=== PATIENT | male | born 1940 | race Caucasian/White ===

== ENCOUNTER 2021-06-18 21:33 | Inpatient (IN) | payer OTHER ==
[~2021-06-18] VITALS: Ht 152.4 cm; Wt 47.5 kg
--- NOTE | ~2021-06-18 | EMS ---
[address] [address] EMS Patient Care Report Name: SMITH GONZALEZ Room #: PRE M.R.#: [id number] Admission: Attend Phys: Discharge: Date of : 38 Report #: [id number] THIS REPORT FOR: //name// Report Transmitted: 06/18/2021 21:30 EMS Care Summary [place], [place]/[facility] Incident [id number] @ 06/18/2021 20:49 Incident Location [facility] [address] [place] [address] Patient SMITH GONZALEZ Male, 81 Years 1940 Patient Address [address] [place] [address] Patient History Congestive Heart Failure (CHF),Chronic Obstructive Pulmonary Disease (COPD),Hypertension (HTN),Cardiac - Stent,Coronary Artery Disease (CAD), Chief Complaint Respiratory distress Disposition Transported Lights/[place] Dispatch Reason Breathing Problem Transported To [facility] Narrative M36 dispatched for a 81 year old male conscious and breathing having respiratory distress. M36 responds to the scene emergent using lights and sirens. Arrival at the scene EMS personnel find the patient upstairs sitting down in bed with P42 personnel. Patient does not acknowledge EMS presence is GCS 3. P42 personnel have placed the patient on oxygen via Nebulizer and have initiated a breathing treatment. P42 personnel advise to EMS that the patient SPO2 is 82% on room air and rhonchi taken off the diminished lung sounds are [address] [place] [address] EMS Patient Care Report Name: SMITH GONZALEZ Room #: PRE [facility]..#: [id number] Admission: Attend Phys: Discharge: Date of : 38 Report #: [id number] auscultated. Patient has a patent airway is breathing a slow and irregular. SPO2 is noted to increase to 85%. Skin is pale and hot to the touch. Weak radial pulses are palpated. Patient is located upstairs in a small bedroom. Patient is moved to a stairchair and secured with seatbelts. Patient is moved quickly and safely downstairs to the stretcher and secured in the supine position using seatbelt and rails. Patient is quickly moved to the ambulance and placed on the monitor to obtain VS and ECG. Patient is quickly removed from the nebulizer and ventilations are initiated via BVM. IV access is established in the left antecubital region using a 18G IV and secured with a venigard. 500ML NS is initiated for hypotension and tachycardia. Sinus tachycardia is noted on ECG. Transport is initiated to [facility] emergent with a sepsis alert. Glucose check is 221mg.dL. Assessment is conducted. Patient is GCS 3 and unresponsive. Patient has a patent airway and is being ventilated via BVM at 15LPM. Regular rapid radial pulses are noted. Skin is hot to the touch and dry. HEENT are WNL. Pupils are PERRL. Trachea is midline with no JVD noted. Chest wall is stable and intact with symmetrical rise and fall. Lung sounds are noted to be diminished with rhonchi. Abdomen is soft and nontender with no distention or rigidity noted. Pelvis is stable and intact. Patient is unresponsive and stable. SPO2 is noted to be 96% with ventilations via BVM. Arrival at the receiving facility patient is offloaded and taken to ED room 11. RN is given report and transfer of care is completed. Signatures are obtained and M36 remains out of service for decon. Initial Vitals @21:17P: 142,R: 9,BP: 89/49,Pain: 0/10,GCS: 3,Glucose: -2,CO: 1,SpO2: 89,Revised Trauma: 5, @21:23P: 120,R: 12,BP: 106/72,Pain: 0/10,GCS: 3,EtCO2: 0,SpO2: 90,Revised Trauma: 8,WI Suspected: false Assessments @21:03MENTAL:Unresponsive,SKIN:Hot,HEENT:Head/Face: No Abnormalities,Eyes: No Abnormalities,LUNG SOUNDS:General: No Abnormalities,Left Upper: No Abnormalities,Right Upper: No Abnormalities,Left Lower: No Abnormalities,Right Lower: No Abnormalities,ABDOMEN:General: No Abnormalities,Left Upper: No Abnormalities,Right Upper: No Abnormalities,Left Lower: No Abnormalities,Right Lower: No Abnormalities,PELVIS//GI:No Abnormalities,EXTREMITIES:Left Arm: No Abnormalities,Right Arm: No Abnormalities,Left Leg: No Abnormalities,Right Leg: No Abnormalities,PULSE:Radial: 1+ Thready,NEURO: Impression Sepsis/Septicemia [facility] [address] [place] [address] EMS Patient Care Report Name: CARLOSSMITH Room #: PRE REAGAN Melissa#: [id number] Admission: Attend Phys: Discharge: Date of : 38 Report #: [id number] Procedures @PTAOxygen FlowRate: 15 Device: Nebulizer Response: UnchangedSucceeded @21:03 ALS Assessment Response: UnchangedSucceeded @21:15 Oxygen FlowRate: 15 Device: Bag Valve Mask (BVM) Response: UnchangedSucceeded @21:15 IV Bolus - Normal Saline (.9% NaCl) 500cc (18 ga) Site: Antecubital-Left Response: UnchangedSucceeded @PTAAlbuterol - 2.5 Milligrams (mg) - Nebulized Response: Unchanged @PTAAtrovent - 0.5 Milligrams (mg) - Nebulized Response: Unchanged Timeline ASSEMBLER KNIFE,Oxygen FlowRate: 15 Device: Nebulizer Response: UnchangedSucceeded, ASSEMBLER KNIFE,Albuterol - 2.5 Milligrams (mg) - Nebulized,Response: Unchanged ASSEMBLER KNIFE,Atrovent - 0.5 Milligrams (mg) - Nebulized,Response: Unchanged 20:48,Call Received 20:48,Dispatch Notified 20:49,Dispatched 20:50,En Route 21:00,On Scene 21:03,At Patient 21:03,ALS Assessment,Response: UnchangedSucceeded, 21:15,Oxygen FlowRate: 15 Device: Bag Valve Mask (BVM) Response: UnchangedSucceeded, 21:15,IV Bolus - Normal Saline (.9% NaCl) 500cc 18 ga Site: Antecubital-Left,Response: UnchangedSucceeded, 21:17,BP: 89/49 M,PULSE: 142,RR: 9 R,SPO2: 89 Ox,ETCO2: ,BG: -2,PAIN: 0,GCS: 3, 21:17,Depart Scene 21:23,BP: 106/72 M,PULSE: 120,RR: 12 R,SPO2: 90 Ox,ETCO2: 0 ,BG: ,PAIN: 0,GCS: 3, 21:27,At Destination 22:00,Call Closed Disclaimer v1.1 Copyright 2021 [employer] This EMS Care Summary contains data elements from the applicable legal record (which may be displayed differently). It is designed to provide pertinent information for the following purposes: continuity of care, clinical quality, and state data reporting. The complete legal record is available to ED staff and administrators of the receiving hospital in [facility]'s Patient Tracker. All data is provided "as is."
--- NOTE | ~2021-06-18 | HC ---
[facility] [address] [place] [address] CONSULTATION Name: SMITH GONZALEZ Room #: 245-P ADM IN M.R.#: [id number] Admission: 06/18/21 Attend Phys: Becky Jeong Discharge: Date of : 38 Report #: [id number] THIS REPORT FOR: cc: [facility] - Clinic physician unknown [facility] - Clinic physician unknown Chester Martin MD ~ DATE OF SERVICE: 06/20/2021 HISTORY OF PRESENT ILLNESS: This is an 81-year-old male patient who was evaluated by me altered mental status. There is no family member here. The patient does not provide any history. I talked to the nurse looking after this patient in detail. I reviewed multiple notes including the ambulance run, admission history and physical examination. It looks like the patient was in respiratory distress when the ambulance people reached there. He was brought to Emergency Room. His oxygen saturation was low, but then it came up some. He continued to be unresponsive. He had some sedation, but nothing which will make him that unresponsive. REVIEW OF SYSTEMS: From the record, he has a history of COPD. He had respiratory distress. He is intubated. He has a past history of schizophrenia, blindness, and BPH as I understand from the record. This is all the history I can get. He is being seen by ID because he had sepsis. He also has a urinary tract infection. He is being seen by Nephrology because he has kidney failure, although that is becoming better with today his GFR being 53. When he came in, he had significant hyponatremia. In the hospital, he has also developed atrial fibrillation. He is being seen by Cardiology in that regard. This is all the history I can get. PAST MEDICAL HISTORY: Positive for what looks like COPD. FAMILY HISTORY: Noncontributory. SOCIAL HISTORY: Unavailable. PHYSICAL EXAMINATION: Limited. He had partially open eyes. He will not close to the threat. I cannot tell about the pupil. He does move when I stimulate his heel, but I do not know whether it is upgoing plantars or whether it is withdrawal. I could not elicit any reflexes. That is all the exam, which was possible in this patient. His labs were reviewed. He does not have any edema. He is intubated. He did have atrial fibrillation here. He is thin individual. He does appear to be macerated. DIAGNOSTIC DATA: He did have a CT scan of the head, which I reviewed that does not show any acute changes. [facility] [address] [place] [address] CONSULTATION Name: SMITH GONZALEZ Room #: 245-P ADM IN .R.#: [id number] Admission: 06/18/21 Attend Phys: Becky Jeong Discharge: Date of : 38 Report #: [id number] IMPRESSION: This patient has severe encephalopathy. How much it is hypoxic, which is irreversible and how much it is because of other metabolic problems which may be partly reversible is not clear. Presently, I think it will be desirable to continue supportive care in this patient and see how he does and I will try to talk to the family and try to reach them and see how aggressive they want to be because it does not look like his quality of the life is very good and he may lose ground even from that. More than 40 minutes of time was spent taking care of this patient today and majority was spent coordinating his care and reviewing his extensive records. By: 1849 2331 Chester Martin MD /nt
--- NOTE | ~2021-06-18 | EMS ---
[facility] [address] [place] [address] EMS Patient Care Report Name: SMITH GONZALEZ Room #: 170-10 ADM IN M.R.#: [id number] Admission: 06/18/21 Attend Phys: Becky Jeong Discharge: Date of : 38 Report #: [id number] THIS REPORT FOR: //name// Report Transmitted: 06/18/2021 22:33 EMS Care Summary [place], [place]/[facility] Incident [id number] @ 06/18/2021 20:49 Incident Location [address] [place] [address] Patient SMITH GONZALEZ Male, 81 Years 1940 Patient Address [address] [place] [address] Patient History Congestive Heart Failure (CHF),Chronic Obstructive Pulmonary Disease (COPD),Hypertension (HTN),Cardiac - Stent,Coronary Artery Disease (CAD), Chief Complaint Respiratory distress Disposition Transported Lights/[place] Dispatch Reason Breathing Problem Transported To [facility] Narrative M36 dispatched for a 81 year old male conscious and breathing having respiratory distress. M36 responds to the scene emergent using lights and sirens. Arrival at the scene EMS personnel find the patient upstairs sitting down in bed with P42 personnel. Patient does not acknowledge EMS presence is GCS 3. P42 personnel have placed the patient on oxygen via Nebulizer and have initiated a breathing treatment. P42 personnel advise to EMS that the patient SPO2 is 82% on room air and rhonchi taken off the diminished lung sounds are [facility] [address] [place] [address] EMS Patient Care Report Name: SMITH GONZALEZ Room #: 170-10 ADM IN M.R.#: [id number] Admission: 06/18/21 Attend Phys: Becky Jeong Discharge: Date of : 38 Report #: [id number] auscultated. Patient has a patent airway is breathing a slow and irregular. SPO2 is noted to increase to 85%. Skin is pale and hot to the touch. Weak radial pulses are palpated. Patient is located upstairs in a small bedroom. Patient is moved to a stairchair and secured with seatbelts. Patient is moved quickly and safely downstairs to the stretcher and secured in the supine position using seatbelt and rails. Patient is quickly moved to the ambulance and placed on the monitor to obtain VS and ECG. Patient is quickly removed from the nebulizer and ventilations are initiated via BVM. IV access is established in the left antecubital region using a 18G IV and secured with a venigard. 500ML NS is initiated for hypotension and tachycardia. Sinus tachycardia is noted on ECG. Transport is initiated to [facility] emergent with a sepsis alert. Glucose check is 221mg.dL. Assessment is conducted. Patient is GCS 3 and unresponsive. Patient has a patent airway and is being ventilated via BVM at 15LPM. Regular rapid radial pulses are noted. Skin is hot to the touch and dry. HEENT are WNL. Pupils are PERRL. Trachea is midline with no JVD noted. Chest wall is stable and intact with symmetrical rise and fall. Lung sounds are noted to be diminished with rhonchi. Abdomen is soft and nontender with no distention or rigidity noted. Pelvis is stable and intact. Patient is unresponsive and stable. SPO2 is noted to be 96% with ventilations via BVM. Arrival at the receiving facility patient is offloaded and taken to ED room 11. RN is given report and transfer of care is completed. Signatures are obtained and M36 remains out of service for decon. Initial Vitals @21:17P: 142,R: 9,BP: 89/49,Pain: 0/10,GCS: 3,Glucose: -2,CO: 1,SpO2: 89,Revised Trauma: 5, @21:23P: 120,R: 12,BP: 106/72,Pain: 0/10,GCS: 3,EtCO2: 0,SpO2: 90,Revised Trauma: 8,LA Suspected: false Assessments @21:03MENTAL:Unresponsive,SKIN:Hot,HEENT:Head/Face: No Abnormalities,Eyes: No Abnormalities,LUNG SOUNDS:General: No Abnormalities,Left Upper: No Abnormalities,Right Upper: No Abnormalities,Left Lower: No Abnormalities,Right Lower: No Abnormalities,ABDOMEN:General: No Abnormalities,Left Upper: No Abnormalities,Right Upper: No Abnormalities,Left Lower: No Abnormalities,Right Lower: No Abnormalities,PELVIS//GI:No Abnormalities,EXTREMITIES:Left Arm: No Abnormalities,Right Arm: No Abnormalities,Left Leg: No Abnormalities,Right Leg: No Abnormalities,PULSE:Radial: 1+ Thready,NEURO: Impression Sepsis/Septicemia [address] [address] EMS Patient Care Report Name: SMITH GONZALEZ Room #: 170-10 ADM IN M.R.#: [id number] Admission: 06/18/21 Attend Phys: Becky Jeong Discharge: Date of : 38 Report #: [id number] Procedures @PTAOxygen FlowRate: 15 Device: Nebulizer Response: UnchangedSucceeded @21:03 ALS Assessment Response: UnchangedSucceeded @21:15 Oxygen FlowRate: 15 Device: Bag Valve Mask (BVM) Response: UnchangedSucceeded @21:15 IV Bolus - Normal Saline (.9% NaCl) 500cc (18 ga) Site: Antecubital-Left Response: UnchangedSucceeded @PTAAlbuterol - 2.5 Milligrams (mg) - Nebulized Response: Unchanged @PTAAtrovent - 0.5 Milligrams (mg) - Nebulized Response: Unchanged Timeline HI RANGER OPERATOR,Oxygen FlowRate: 15 Device: Nebulizer Response: UnchangedSucceeded, HI RANGER OPERATOR,Albuterol - 2.5 Milligrams (mg) - Nebulized,Response: Unchanged HI RANGER OPERATOR,Atrovent - 0.5 Milligrams (mg) - Nebulized,Response: Unchanged 20:48,Call Received 20:48,Dispatch Notified 20:49,Dispatched 20:50,En Route 21:00,On Scene 21:03,At Patient 21:03,ALS Assessment,Response: UnchangedSucceeded, 21:15,Oxygen FlowRate: 15 Device: Bag Valve Mask (BVM) Response: UnchangedSucceeded, 21:15,IV Bolus - Normal Saline (.9% NaCl) 500cc 18 ga Site: Antecubital-Left,Response: UnchangedSucceeded, 21:17,BP: 89/49 M,PULSE: 142,RR: 9 R,SPO2: 89 Ox,ETCO2: ,BG: -2,PAIN: 0,GCS: 3, 21:17,Depart Scene 21:23,BP: 106/72 M,PULSE: 120,RR: 12 R,SPO2: 90 Ox,ETCO2: 0 ,BG: ,PAIN: 0,GCS: 3, 21:27,At Destination 22:00,Call Closed Disclaimer v1.1 Copyright 2021 [employer] This EMS Care Summary contains data elements from the applicable legal record (which may be displayed differently). It is designed to provide pertinent information for the following purposes: continuity of care, clinical quality, and state data reporting. The complete legal record is available to ED staff and administrators of the receiving hospital in [employer] Patient Tracker. All data is provided "as is."
[2021-06-18 21:40] VITALS: BP 109/82
[2021-06-18 22:12] LABS: ABSOLUTE NEUTROPHILS 16.9 thou/uL (1.4-8.2); BASOPHILS 0.1 % (0.0-2.0); HEMATOCRIT 47.6 % (42.0-52.0); HEMOGLOBIN 15.6 gm/dL (14.0-18.0); LYMPHOCYTES 2.7 % (24.0-44.0); MCH 32.3 pg (26.0-34.0); MCHC 32.8 g/dL (28.0-37.0); MCV 98.5 fL (80.0-100.0); MONOCYTES 7.1 % (1.0-8.0); PLATELET COUNT 266 thou/uL (150-400); POLYS 90.1 % (36.0-66.0); RBC 4.83 mil/uL (4.50-6.00); RDW 13.1 % (10.5-14.5); WBC 18.8 thou/uL (4.0-11.0)
[2021-06-18 22:34] LABS: URINE BILIRUBIN NEGATIVE (Negative); URINE BLOOD 1+ (Negative); URINE CLARITY CLOUDY; URINE COLOR YELLOW; URINE GLUCOSE-RANDOM* NEGATIVE (Negative); URINE KETONES NEGATIVE (Negative); URINE NITRITE-REFLEX NEGATIVE (Negative); URINE PROTEIN (DIPSTICK) 2+ (Negative); URINE SPECIFIC GRAVITY 1.025 (1.005-1.035); URINE UROBILINOGEN 0.2 E.U./dl (0.2-1.0)
[2021-06-18 22:41] LABS: CALCIUM 8.8 mg/dL (8.5-10.1); CREATININE 3.2 mg/dL (0.7-1.3); POTASSIUM 5.9 mmol/L (3.5-5.1); TOTAL BILIRUBIN 0.4 mg/dL (0.2-1.0); TOTAL PROTEIN 6.7 g/dL (6.4-8.2)
[2021-06-18 22:51] LABS: URINE LEUKOCYTES-REFLEX 3+ (Negative)
[2021-06-18 22:52] LABS: BACTERIA-REFLEX 1-9 Few /HPF (None Seen); CASTS None Seen /LPF (None Seen); CRYSTALS None Seen /LPF (None Seen); MUCUS 0-3 Light strn/LPF (None Seen); SQUAMOUS 0-3 Few /LPF (0-3); URINE RBC 3-10 Few /HPF (NONE SEEN); URINE WBC-REFLEX >25 Many /HPF (0-5); WBC CLUMPS Packed (None Seen)
[2021-06-18 23:04] LABS: BE(vivo) -5.3 mmol/L (-2 to +3); HCO3 20.6 mmol/L (22.0-26.0); PCO2 41.1 mmHg (35.0-45.0); PO2 422.8 mmHg (80.0-100.0); sO2 99.8 % (92.0-98.0)
[2021-06-18 23:06] LABS: pH 7.317 (7.360-7.450)
[2021-06-19] VITALS (16 sets, daily range): BP systolic 89–111; BP diastolic 59–72
[2021-06-19 02:21] LABS: HEMATOCRIT 45.4 % (42.0-52.0); HEMOGLOBIN 14.3 gm/dL (14.0-18.0); MCH 31.6 pg (26.0-34.0); MCHC 31.6 g/dL (28.0-37.0); RBC 4.54 mil/uL (4.50-6.00); RDW 13.3 % (10.5-14.5); WBC 18.3 thou/uL (4.0-11.0)
[2021-06-19 02:29] LABS: CALCIUM 8.4 mg/dL (8.5-10.1); CREATININE 3.2 mg/dL (0.7-1.3); MAGNESIUM 3.3 mg/dL (1.8-2.4); POTASSIUM 5.1 mmol/L (3.5-5.1)
--- NOTE | 2021-06-19 10:53 | EKG ---
[place] [address] [facility] [place] [address] ELECTROCARDIOGRAM REPORT Name: SMITH GONZALEZ Room #: 170-10 ADM IN M.R.#: [id number] Admission: 06/18/21 Attend Phys: Becky Jeong Discharge: Date of : 38 Report #: [id number] [facility] ED Test Date: 2021-06-18 Test Time: 22:08:33 Pat Name: SMITH GONZALEZ Department: Room: 170 Gender: M Tariff Expert: UNK : 1940 Requested By: Jose Eduardo Wayne Order Number: [id number] MD: Deangelo Howe Measurements Intervals [place] Rate: 127 P: 82 LA: 134 QRS: 61 QRSD: 68 T: 7 QT: 273 QTc: 397 Interpretive Statements Sinus tachycardia LAE, consider biatrial enlargement Borderline T abnormalities, inferior leads No previous ECG available for comparison Electronically Signed On 06-19-2021 10:53:05 RN PLACEMENT by Deangelo Howe [email or web address] <ELECTRONICALLY SIGNED> By: Deangelo Howe MD, [facility] 06/19/21 1053 [id number] Deangelo Howe MD, FACC /EPI
--- NOTE | 2021-06-19 11:53 | NUR ---
PLEASE SEE OT VARIANCE
--- NOTE | 2021-06-19 13:29 | NUR ---
PT ADMITTED RELATED TO RENAL FAILURE, UTI, SEPSIS, HYPERNATREMIA. CM REVIEWED CHART AND SPOKE WITH CARE TEAM. CM CALLED AND SPOKE WITH PT'S SPOUSE . SHE INDICATED THAT SHE AND SPOUSE HAD MOVED HERE FROM [facility] 3 MONTHS AGO AND HAVE BEEN LIVING WITH THEIR SON BREANA IN HIS HOUSE. SPOUSE INDICATED THAT PT IS A SMOAKER AND HAS HX OF COPD BUT HADN'T HAD ANY ISSUES PREVIOUSLY. SHE INDICATED NO O2 AT HOME. SPOUSE INDICATED THAT PT HAS HX OF MENTAL HX ISSUES AND HAD BREAKDOWN IN 1964 WHEN HE WAS HOSPITALIZED. HX OF SCHIZOPHRENIA. SHE THINKS PT MAY HAVE SOME DEMENTIA WELL. SHE INDICATED THAT PT HAS A FWW FOR HOME USE BUT DOESN'T USE IT AND HAS HAD SOME FALLS. SHE INDICATED THAT PT HAD BEEN HOSPITALIZED LOCALLY ONCE SINCE THEM MOVED HERE FOR A DAY. SHE INDICATED THAT PT CAN BE COMBATTIVE AND HAS SOME SKIN TEARS ON HIS BL EXTREMITIES. PT WAS INTUBATED UPON ARRIVAL TO ER YESTERDAY WHICH SHE WAS AWARE OF. PT IS ON VENT FIO2 60% PEEP 5. PT IS ON VAN AND ZOSYN. NEPHROLOGY AND ID WERE CONSULTED. CM FOLLOWING.
--- NOTE | 2021-06-19 18:56 | NUR ---
PT ARRIVED FROM THE ED AROUND 1835 WITH RT AND RN ESCORT, AT THE TIME OF ARRIVAL PT WAS ON FENTANYL GTT, AND ON THE VENT. PT'S VITAL SIGNS ARE FOLLOWS, HR116 RR9 103/59 99F 95%SPO2, WEIGHT OF 99.8LBs. PT APPEARANCE IS OVERALL UNKEPT, VERY CACHETIC, URINE COLOR WAS VERY CLOUDY DARKER YELLOW. FENTANYL IS THE ONLY GTT RUNNING, PER ED RN, ABX WERE FINISHED JUST BEFORE PT ARRIVING THIS UNIT. THIS RN UNABLE TO COMPLETE ADMISSION DUE TO TIME OF ARRIVAL; ALSO PT IS NOT ABLE TO PROVIDE HISTORY GIVEN CURRENT MEDICAL PRESENTATION. PT HAS MOUTH GAPED OPEN, VERY RIGID, DOES NOT FOLLOW COMMANDS, AND STARING OFF INTO THE CEILING. DOES WITHDRAW AWAY FROM PAIN AND MOVES AGAINST CARE. WILL PASS OFF TO HS RN.
[2021-06-19 21:12] LABS: BE(vivo) -4.7 mmol/L (-2 to +3); HCO3 20.2 mmol/L (22.0-26.0); PCO2 37.1 mmHg (35.0-45.0); PO2 91.5 mmHg (80.0-100.0); pH 7.354 (7.360-7.450); sO2 96.7 % (92.0-98.0)
[2021-06-20] VITALS (77 sets, daily range): BP systolic 76–118; BP diastolic 44–76
--- NOTE | 2021-06-20 07:47 | HC ---
[facility] [address] [place] [address] CONSULTATION Name: SMITH GONZALEZ Room #: [facility] IN M.R.#: [id number] Admission: 06/18/21 Attend Phys: Becky Jeong Discharge: Date of : 38 Report #: [id number] THIS REPORT FOR: cc: [facility] - Clinic physician unknown [facility] - Clinic physician unknown Kun Rausch MD ~ INFECTIOUS DISEASE CONSULTATION ATTENDING PHYSICIAN: Dr. Jeong. REASON FOR EVALUATION: Septic shock, pneumonitis with respiratory failure, also complicated urinary tract infection. HISTORY OF PRESENT ILLNESS: Chart reviewed. The patient examined. This is an 81-year-old gentleman. History is obtained from the record. Apparently, he has schizophrenia, blindness, who apparently presented to the Emergency Room via EMS. He was noted to be markedly encephalopathic. He was found to be quite dyspneic and was confirmed to be hypoxic as well. This required an urgent/emergent intubation. He is now on mechanical ventilatory support. Evaluation was undertaken. Imaging suggests acute on chronic pneumonitis. Coronavirus testing was negative. Lactic acid elevated at 3.7. Urinalysis showed marked pyuria. CT of the head, no evidence of acute intracranial process. Post-intubation, adequate pO2 100%, 422.8. Influenza antigen was negative. Repeat lactic acid was 1.8. Blood cultures collected at time of admission are sterile thus far. He was empirically started on antibiotics with Zosyn and vancomycin. ALLERGIES: None known. CURRENT MEDICATIONS: Include vancomycin, heparin, budesonide, Zosyn, fentanyl, p.r.n. ondansetron. PAST MEDICAL HISTORY: As available, has known schizophrenia, history of BPH and blindness. He apparently has underlying COPD as well. SOCIAL AND FAMILY HISTORY: Not available. REVIEW OF SYSTEMS: Not obtainable. PHYSICAL EXAMINATION: GENERAL: He appears emaciated, chronically ill. He is not responsive at this point. He is maintained on ventilatory support via endotracheal tube. VITAL SIGNS: Temperature overnight 99.1, pulse 126, respirations 14, blood pressure 108/60. SKIN: Warm, dry. No rashes. [facility] [address] [place] [address] CONSULTATION Name: SMITH GONZALEZ Room #: 245-P [facility] IN M.R.#: [id number] Admission: 06/18/21 Attend Phys: Becky Jeong Discharge: Date of : 38 Report #: [id number] HEENT: Significant loss of subcutaneous tissue with marked bony prominence. He has got the ET, OG tube in place. LUNGS: Scattered coarse breath sounds. HEART: Tachycardic. Some irregularity. May have a soft systolic murmur. ABDOMEN: Scaphoid. There are no overt peritoneal signs. GENITOURINARY AND RECTAL: Deferred. LABORATORY DATA: As described above. Most recent lactic acid 1.8. Electrolytes: Sodium 160, potassium 5.1, chloride 126, bicarbonate is 23, anion gap of 11, BUN and creatinine 145 and 3.2, glucose of 182. CBC: White count of 18.3, H and H 14.3 and 45.4, platelets of 211. Urinalysis greater than 25 white cells, 1-9 bacteria. Chest x-ray shows chronic lung changes, some patchy bilateral interstitial opacities. No clear consolidations or pneumothorax. ASSESSMENT AND PLAN: 1. Septic shock, complicated by acute on chronic respiratory failure, suspect component of pneumonitis. 2. Suspect he has a complicated urinary tract infection. 3. Hypernatremia. 4. Renal failure. PLAN: Continue combination of broad-spectrum therapy. He is clearly critically ill and his prognosis appears poor. Continue mechanical ventilatory support. Wean off therapy as allowed. <ELECTRONICALLY SIGNED> By: Kun Rausch MD 06/20/21 0747 1201 2103 Kun Rausch MD /nt
--- NOTE | 2021-06-20 08:33 | NUR ---
ORDERS FOR EVAL AND TREAT HOWEVER Pt INTUBATED AND SEDATED AND NOT FOLLOWING COMMANDS. WILL PLACE ON HOLD AND AWAIT NEW ORDERS WHEN Pt CAN PARTICIPATE WITH THERAPY
--- NOTE | 2021-06-20 08:53 | NUR ---
RECEIVED OT EVALUATION ORDER. PATIENT IS INTUBATED/SEDATED WILL PLACE ON HOLD. WILL NEED NEW ORDERS ONCE PATIENT IS ABLE TO PARTICIPATE.
--- NOTE | 2021-06-20 10:25 | NUR ---
PATIENT HAD A RUN OF VTACH. TALKED TO DOCTOR PEDRAZA ABOUT THIS NO NEW ORDERS AT THIS TIME. DOCTOR PEDRAZA DID ASK FOR HIS SEDATION TO BE TURNED OFF WAS TURNED DOWN TO 30 ML. ALL THIS WAS GIVEN IN REPORT TO MICHELA SOUSA
[2021-06-20 10:56] LABS: HEMOGLOBIN 12.7 gm/dL (14.0-18.0); MCH 31.4 pg (26.0-34.0); MCHC 31.7 g/dL (28.0-37.0); RBC 4.04 mil/uL (4.50-6.00); RDW 13.2 % (10.5-14.5); WBC 18.6 thou/uL (4.0-11.0)
[2021-06-20 11:19] LABS: ALBUMIN 2.2 g/dL (3.4-5.0); CALCIUM 9.1 mg/dL (8.5-10.1); CREATININE 1.3 mg/dL (0.7-1.3); MAGNESIUM 2.7 mg/dL (1.8-2.4); POTASSIUM 3.9 mmol/L (3.5-5.1); TOTAL BILIRUBIN 0.9 mg/dL (0.2-1.0); TOTAL PROTEIN 6.1 g/dL (6.4-8.2)
--- NOTE | 2021-06-20 11:38 | NUR ---
DISCUSSED WITH REGARDING PT'S CURRENT STATUS, MD DISCUSSED WITH FAMILY REGARDING GOALS OF CARE, PT STATUS CHANGED TO INTUBATION ONLY AT THIS TIME PER MD WHILE IN THE ROOM WITH , SEIZURE LIKE ACITIVITY WITNESSED, RN NOTIFIED NEUROLOGY CONSULT REGARDING THIS EVENT WELL HOSPITALIST AND ATIVAN 2MG ORDERED FOR SEIZURE FOR THE TIME BEING. CONTINUING TO MONITOR AT THIS TIME
--- NOTE | 2021-06-20 13:00 | NUR ---
Cm notified that family/son would like at personnel associate to do the anointing of the sick for puma. CM notified spiritual care and Fr. Stevenson will be notified. Puma remains on the vent, 70% FIO2, peep 8. Will cont following as needed.
--- NOTE | 2021-06-20 16:00 | EKG ---
[place] [address] [facility] [place] [address] ELECTROCARDIOGRAM REPORT Name: SMITH GONZALEZ Room #: 245-P ADM IN M.R.#: [id number] Admission: 06/18/21 Attend Phys: Becky Jeong Discharge: Date of : 36 Report #: [id number] Formerly [facility] Test Date: 2021-06-20 Test Time: 15:53:36 Pat Name: SMITH GONZALEZ Department: Room: [facility] P Gender: M Crisis Worker: JODIE : 1940 Requested By: Renaldo Trinidad Order Number: [id number] MD: Alexis Muñoz Measurements Intervals [place] Rate: 148 P: IA: QRS: 60 QRSD: 75 T: 228 QT: 279 QTc: 438 Interpretive Statements Atrial fibrillation with rapid V-rate Repolarization abnormality, prob rate related Compared to ECG 06/18/2021 22:08:33 ST and T wave abnormality is more pronounced Sinus tachycardia no longer present Electronically Signed On 06-20-2021 15:59:50 GYROSCOPIC INSTRUMENT MECHANIC by Alexis Muñoz [email or web address] <ELECTRONICALLY SIGNED> By: Alexis Muñoz MD, [facility] 06/20/21 [id number] Alexis Muñoz MD, [facility] /EPI
[2021-06-20 16:12] LABS: HCO3 23.6 mmol/L (22.0-26.0); pH 7.399 (7.360-7.450); sO2 97.3 % (92.0-98.0)
[2021-06-21] VITALS (94 sets, daily range): BP systolic 84–130; BP diastolic 34–66
--- NOTE | 2021-06-21 03:36 | NUR ---
Assumed pt care at 1900. Pt is sedated, unable to verbalize needs. Assessment completed and documented. Vital signs stable. Scheduled meds administered to pt. No acute events during the night. Continue to monitor. No further needs at this time
[2021-06-21 04:07] LABS: CALCIUM 9.3 mg/dL (8.5-10.1); CREATININE 1.2 mg/dL (0.7-1.3); MAGNESIUM 2.7 mg/dL (1.8-2.4); POTASSIUM 3.8 mmol/L (3.5-5.1)
[2021-06-21 06:55] LABS: HEMATOCRIT 39.3 % (42.0-52.0); HEMOGLOBIN 11.9 gm/dL (14.0-18.0); MCH 32.1 pg (26.0-34.0); MCHC 30.3 g/dL (28.0-37.0); RBC 3.71 mil/uL (4.50-6.00); WBC 17.3 thou/uL (4.0-11.0)
[2021-06-21 06:57] LABS: MCV 105.7 fL (80.0-100.0)
--- NOTE | 2021-06-21 09:00 | NUR ---
RN RETURNED FENTANYL BAG TO PHARMACIST
--- NOTE | 2021-06-21 12:17 | 2DMMODE ---
[facility] [address] [place] [address] 2 D/M-MODE ECHOCARDIOGRAM Name: SMITH GONZALEZ Room #: 245-P ADM IN M.R.#: [id number] Admission: 06/18/21 Attend Phys: Becky Jeong Discharge: Date of : 36 Report #: [id number] THIS REPORT FOR: cc: [facility] - Clinic physician unknown [facility] - Clinic physician unknown Alexis Muñoz MD [facility] ~ APPROVED REPORT Study performed: 06/21/2021 11:05:53 EXAM: Comprehensive 2D, Doppler, and color-flow Echocardiogram Patient Location: ICU Room #: [facility] Status: routine BSA: 1.32 HR: 73 bpm BP: 105/52 mmHg Rhythm: NSR Other Information Study Quality: Adequate Technically limited study due to COPD, thin body habitus, patient on vent. Indications Afib with RVR. Septic shock, respiratory failure. Hx: COPD. 2D Dimensions RVDd: 33.97 mm IVSd: 7.74 (7-11mm) LVOT Diam: 19.01 (18-24mm) LVDd: 39.80 mm PWd: 7.10 (7-11mm) LVDs: 28.52 (25-40mm) Left Atrium: 27.25 (27-40mm) Aortic Root: 31.92 mm Volumes Left Atrial Volume (Systole) Single Plane 4CH: 20.64 mL Single Plane 2CH: 24.35 mL LA ESV Index: 18.00 mL/m2 Aortic Valve AoV Peak Tay.: 3.85 m/s [facility] [address] [place] [address] 2 D/M-MODE ECHOCARDIOGRAM Name: CARLOSSMITH Room #: 245-P [facility] IN M.R.#: [id number] Admission: 06/18/21 Attend Phys: Becky De Anda Discharge: Date of : 36 Report #: [id number] Peak Gr.: 59.23 mmHg LVOT Max P.87 mmHg AO Mean Gr.: 36.38 mmHg AO V2 Mean: 2.92 m/s LVOT Max V: 1.10 m/s AO V2 VTI: 78.86 cm LISA Vmax: 0.81 cm2 Mitral Valve E/A Ratio: 0.8 MV Decel. Time: 342.14 ms MV E Max Tay.: 0.69 m/s MV A Tay.: 0.82 m/s MV PHT: 99.22 ms Tricuspid Valve TR Peak Tay.: 1.84 m/s TR Peak Gr.: 14.00 mmHg Left Ventricle The left ventricle is normal size. There is normal LV segmental wall motion. There is normal left ventricular wall thickness. Left ventricular systolic function is normal. LVEF is 60-65%. Mild diastolic dysfunction Right Ventricle The right ventricle is normal size. The right ventricular systolic function is normal. Atria The left atrium size is normal. The right atrium size is normal. Aortic Valve The aortic valve is heavily calcified, severely stenotic. No aortic regurgitation is present. Calculated aortic valve area is 0.8 cm2 (Peak gradient of 59 mmHg, mean pressure gradient of 36 mmHg). Mitral Valve The mitral valve is normal in structure. There is no mitral valve regurgitation noted. No evidence of mitral valve stenosis. Tricuspid Valve The tricuspid valve is normal in structure. Trace tricuspid regurgitation. Estimated pulmonary artery pressure of 25mmHg [facility] [address] [place] [address] 2 D/M-MODE ECHOCARDIOGRAM Name: SMITH GONZALEZ Room #: 245-P [facility] IN M.R.#: [id number] Admission: 06/18/21 Attend Phys: Becky De Anda Discharge: Date of : 36 Report #: [id number] Pulmonic Valve Pulmonic valve is not well visualized. Great Vessels The aortic root is normal in size. Ascending aorta is not well visualized. IVC is not well visualized. Pericardium There is no pericardial effusion. <Conclusion> Left ventricular systolic function is normal. There is normal LV segmental wall motion. LVEF is 60-65%. Mild diastolic dysfunction The aortic valve is heavily calcified, severely stenotic. Calculated aortic valve area is 0.8 cm2 (Peak gradient of 59 mmHg, mean pressure gradient of 36 mmHg). The mitral valve is normal in structure. No mitral valve regurgitation noted. Trace tricuspid regurgitation. Estimated pulmonary artery pressure of 25mmHg There is no pericardial effusion. <ELECTRONICALLY SIGNED> By: Alexis Muñoz MD, FACC 06/21/211216 16 16 Alexis Muñoz MD, FACC /INF
--- NOTE | 2021-06-21 18:40 | NUR ---
Patient unresponsive, fentnyl stopped at start of shift to assess neuro status. Remained unresponsive with nonpurposeful flicker of muscle. MD aware. Amio changed from IV to PO. ECHO completed, awaiting results, D5W increased from 150 to 200. Son, Vincent visited today, upodated him at that time. Pallitive care set up a family meeting with son for tomorrow (06/22/20). No progression on patient status.
[2021-06-22] VITALS (94 sets, daily range): BP systolic 87–130; BP diastolic 44–78
[2021-06-22 06:31] LABS: HEMATOCRIT 34.1 % (42.0-52.0); MCH 30.9 pg (26.0-34.0); MCHC 32.1 g/dL (28.0-37.0); RBC 3.54 mil/uL (4.50-6.00); RDW 12.6 % (10.5-14.5); WBC 16.5 thou/uL (4.0-11.0)
[2021-06-22 06:35] LABS: MCV 96.4 fL (80.0-100.0)
[2021-06-22 06:40] LABS: CALCIUM 8.8 mg/dL (8.5-10.1); CREATININE 0.8 mg/dL (0.7-1.3); POTASSIUM 3.5 mmol/L (3.5-5.1)
--- NOTE | 2021-06-22 13:23 | NUR ---
WOUND CONSULT: I WAS CONSULTED FOR THE RIGHT ARM. THE CORRECT LOCATION IS THE RIGHT ARM TRICEPT AREA. THE AREA MEASURES APPROX 6 X 2 X 0.1 TODAY IT IS A CLEANSE WOUND BED WITH A HEALTHY RED COLOR. NO S/S OF INFECTION. RECOMMENDATIONS: -APPLY AN OPTIFOAM AG, NO TAPE TO SKIN. MAY USE A TUBIGRIP IF THE DRESSING DOES NOT STAY IN PLACE. DISCUSSED WITH RN.
--- NOTE | 2021-06-22 14:30 | NUR ---
Discussed during los with the attending physician. Remains on vent, nutritional support. Palliative consult and going to meet with family around 1530 today. No anticipated dc over the weekend. Will cont. following as needed.
[2021-06-22 18:06] LABS: FOLIC ACID 2.3 ng/mL (8.6-58.9)
--- NOTE | 2021-06-22 18:29 | NUR ---
no progress made on patient; pallitive care spoke with family. Code status changed to no code. ativan increased from q6 hours to q3 hours, fluids changes to 045% ns at 75ml/hr.
[2021-06-23] VITALS (37 sets, daily range): BP systolic 87–149; BP diastolic 44–85
--- NOTE | 2021-06-23 06:16 | NUR ---
PT NOT PROGRESSING TOWARDS GOALS DURING THIS SHIFT. PT BECAME TACHYCARDIC DURING THIS SHIFT WITH A HR OF 161. PT CONVERTED BACK TO SINUS RHYTHM SHORTLY AFTER. WILL CONTINUE TO MONITOR AND FOLLOW POC.
[2021-06-23 06:18] LABS: HEMATOCRIT 30.6 % (42.0-52.0); HEMOGLOBIN 10.2 gm/dL (14.0-18.0); MCH 31.8 pg (26.0-34.0); MCHC 33.4 g/dL (28.0-37.0); MCV 95.4 fL (80.0-100.0); RBC 3.2 mil/uL (4.50-6.00); RDW 12.3 % (10.5-14.5); WBC 14.6 thou/uL (4.0-11.0)
[2021-06-23 06:32] LABS: CALCIUM 8.5 mg/dL (8.5-10.1); CREATININE 0.8 mg/dL (0.7-1.3); MAGNESIUM 2.1 mg/dL (1.8-2.4); POTASSIUM 3.6 mmol/L (3.5-5.1)
[2021-06-23 10:39] LABS: BE(vivo) 1.6 mmol/L (-2 to +3); HCO3 25.6 mmol/L (22.0-26.0); PCO2 38.1 mmHg (35.0-45.0); PO2 87.3 mmHg (80.0-100.0); pH 7.446 (7.360-7.450)
--- NOTE | 2021-06-23 13:19 | NUR ---
RN UTILIZED ZOOM INTERACTION WITH DR. KAPLAN FOR NEUROLOGY CONSULT
--- NOTE | 2021-06-23 17:22 | NUR ---
1430: PT'S SON, BREANA CALLED FOR UPDATE. RN UPDATED HIM ON POC. RN INQUIRED REGARDING PT'S BASELINE. PER SON, PT DID NOT CONVERSE MUCH, BUT SON REPORTS HE IS VERY HARD OF HEARING. SON STATES PT HAS BEEN DEPENDENT WITH CARES WITHIN THE PAST MONTH AND A HALF, SON HELPING FEED HIM AND BATHE HIM. SON ALSO REPORTS PT TRYING TO GET OUT OF BED IN THE MIDDLE OF THE NIGHT. UNABLE TO TRULY ASSESS ORIENTATION PT'S SON CONTINUES TO ATRIBUTE LACK OF SPEAKING TO HIS HEARING PROBLEM. PT'S SON REPORTS HE TAKES RISPERIDOL AT HOME WELL. RN UPDATED DR. FIELDS WHEN AT BEDSIDE OF PT'S SONS REPORT.
[2021-06-24] VITALS (41 sets, daily range): BP systolic 110–141; BP diastolic 69–85
--- NOTE | 2021-06-24 05:22 | NUR ---
PATIENT SLEPT QUIETLY THROUGHOUT THE NOC. PT NOT RECEIVING ANY SEDATION AND TOLERATING CPAP WELL WITH 02 SAT 97% AND ABOVE THROUGHOUT THE SHIFT. TF ON HOLD D/T OGT CONTINUING TO LOOP AROUND HIATAL HERNIA. WILL CONTINUE TO MONITOR AND FOLLOW POC.
[2021-06-24 05:56] LABS: HEMATOCRIT 37.2 % (42.0-52.0); MCH 31.6 pg (26.0-34.0); MCHC 32.2 g/dL (28.0-37.0); MCV 98.1 fL (80.0-100.0); RBC 3.8 mil/uL (4.50-6.00); WBC 16.2 thou/uL (4.0-11.0)
[2021-06-24 06:10] LABS: CALCIUM 8.7 mg/dL (8.5-10.1); CREATININE 0.9 mg/dL (0.7-1.3); MAGNESIUM 2.2 mg/dL (1.8-2.4); POTASSIUM 3.7 mmol/L (3.5-5.1)
--- NOTE | 2021-06-24 10:09 | NUR ---
0830: DISCUSSED POC WITH DR. FIELDS AT BEDSIDE.
--- NOTE | 2021-06-24 13:32 | NUR ---
1250: RN DISCUSSED POC WITH DR. PEDRAZA. CLARIFIED IF HE WOULD LIKE PT TO BE EXTUBATED TODAY HE HAS SUCCESSFULLY BEEN ON CPAP MODE SINCE YESTERDAY. PT CONTINUES TO NOT FOLLOW COMMANDS, MINIMAL RESPONSES ASIDE FROM WITHRAWAL FROM PAIN OR TACTILE STIMULATION. DR. PEDRAZA REPORTS NEED TO SPEAK WITH FAMILY FOR GOALS OF CARE--DO THEY WANT TO PURSUE TRACH/PEG. NO PLANS TO EXTUBATE AT THIS TIME UNTIL THIS CAN OCCUR. PALLIATIVE IS FOLLOWING PT'S POC
--- NOTE | 2021-06-24 14:33 | NUR ---
RN SPOKE WITH DR. FIELDS. NOTIFIED HER PT'S TF HAVE BEEN ON HOLD DUE TO CONCERNS FOR OG BEING WITHIN THE "LARGE HIATAL HERNIA" PER XRAY. NOTIFIED HER OG WAS REPLACED LAST NIGHT WITH SAME RESULT. PER DR. PEDRAZA, NO INTENTION TO EXTUBATE TODAY, WILL NEED TO SEE IF PT ABLE TO FOLLOW COMMANDS TO BE CONFIDENT HE CAN CLEAR SECRETIONS AND MANAGE AIRWAY SO UNABLE TO PLAN FOR DIET. RN ASKED IF DR. FIELDS WOULD LIKE RN TO REPLACE OG. PER DR. FIELDS, UNLIKELY TO GET OG PLACED WITHOUT IT BEING IN HERNIA, OKAY TO RESTART TF AT THIS TIME.
--- NOTE | 2021-06-24 20:14 | NUR ---
PT NOT PROGRESSING TOWARDS GOALS THIS SHIFT. REMAINS ON CPAP MODE VIA ETT AND TOELRATING WELL; HOWEVER CONTINUES TO NOT FOLLOW COMMANDS DESPITE HAVING SEDATION OFF MORE THAN 24HRS.
[2021-06-25] VITALS (47 sets, daily range): BP systolic 105–143; BP diastolic 62–85
--- NOTE | 2021-06-25 09:32 | NUR ---
RN FOUND 250CC RESIDUAL FROM TF THIS MORNING, LOW GRADE TEMP OF 100, ACETAMINOPHEN GIVEN, 60CC OF TF GIVEN BACK AND TF RESTARTED. TF EMESIS REPORTED OVER THE WEEKEND, PTS RR HIGH DURING CPAP THIS MORNING, RT CONVERTED BACK TO CMV
--- NOTE | 2021-06-25 10:58 | NUR ---
WOUND CARE F/U; THE LEFT TRICEP AREA WAS ASSESSED AND LOOKS BETTER TODAY. SOME S/S OF HEALING. THE WOUND HAS NO S/S OF INFECTION. NO ODOR. NO NEW WOUNDS IDENTIFIED. RECOMMENDATIONS; -CONTINUE CURRENT POC. DISCUSSED WITH RN.
--- NOTE | 2021-06-25 15:39 | NUR ---
Discussed during los with the attending physician and during unit round. Vent 30% FIO2, peep 5, cpap trial, elevated temp. Palliative visited with son at end on last week. Did make him DNR but going to cont. tx and not ready to make that decision on his own, will talk with family. Getting kub today. Will cont following as needed
[2021-06-26] VITALS (38 sets, daily range): BP systolic 110–139; BP diastolic 63–83
[2021-06-26 03:23] LABS: HEMOGLOBIN 12.5 gm/dL (14.0-18.0); MCH 31.7 pg (26.0-34.0); MCHC 32.8 g/dL (28.0-37.0); MCV 96.7 fL (80.0-100.0); RBC 3.93 mil/uL (4.50-6.00); RDW 13.1 % (10.5-14.5); WBC 10.6 thou/uL (4.0-11.0)
[2021-06-26 03:47] LABS: CALCIUM 8.3 mg/dL (8.5-10.1); CREATININE 0.8 mg/dL (0.7-1.3); POTASSIUM 4.2 mmol/L (3.5-5.1)
--- NOTE | 2021-06-26 04:41 | NUR ---
Pt's son called from [phone]. He was updated on the pt's condition and his plan of care. Pt is not progressing towards plan of care as evidenced by failure to awaken, open eyes or follow commands, despite being off sedation. Pt is on mechanical vent for o2 saturation support.
--- NOTE | 2021-06-26 11:20 | NUR ---
Pt remains in ICU. Case discussed in rounds. Palliative care manpower development advisor spoke with son Vincent again today and they did discuss need for LTAC/SNF if they decide to do a trach and peg. Pt is a DNR. Family discussing options and want to continue agg treatment at this time. Pt remains non responsive and on the vent at 30%FIO2. Will continue to follow.
--- NOTE | 2021-06-26 19:44 | NUR ---
SPOKE WITH PATIENTS SON THIS AFTERNOON AROUND 1400 TODAY AND ANSWERED HIS QUESTIONS FOR HIM. HE STATED THAT HE WOULD LIKE FOR THE PALLITIVE CARE STICKER OPERATOR TO REACH OUT TO HIM AGAIN REGARDING GOING TO COMFORT CARE. HE APPEARED TO BE HESITANT OVER THE PHONE ABOUT GOING THROUGH WITH TRACH AND PEG. PT SON WOULD LIKE TO FURTHER DISCUSS COMFORT CARE/PALLITIVE CARE OPTIONS.
[2021-06-27] VITALS (48 sets, daily range): BP systolic 99–133; BP diastolic 54–82
--- NOTE | 2021-06-27 03:31 | NUR ---
Pt's son, Vincent, called at 2200. He was updated on the pt's condition and his plan of care. He notified this RN that his family has decided not to proceed with the peg/trach procedure. This information will be passed to the incoming dayshift RN.
--- NOTE | 2021-06-27 10:17 | NUR ---
WOUND CARE F/U: THE PATIENT IS BEING MECHANICALLY VENTILATED. THERE IS A WOUND OF [place]OWN ORIGION TO THE RIGHT TRICEPT AREA. THIS WOUND CONTINUES TO IMPROVE, CURRENTLY WE ARE USING AN OPTIFOAM AG. THIS REMAINS APPROPRIATE. NO CHANGES NEEDED. DISCUSSED WITH RN.
[2021-06-27 15:59] LABS: HEMOGLOBIN 12.5 gm/dL (14.0-18.0); MCH 31.4 pg (26.0-34.0); MCHC 31.3 g/dL (28.0-37.0); MCV 100.3 fL (80.0-100.0); RBC 3.99 mil/uL (4.50-6.00); RDW 14.1 % (10.5-14.5); WBC 13.3 thou/uL (4.0-11.0)
[2021-06-27 16:09] LABS: CALCIUM 8.2 mg/dL (8.5-10.1); CREATININE 0.8 mg/dL (0.7-1.3); POTASSIUM 3.8 mmol/L (3.5-5.1)
--- NOTE | 2021-06-27 18:41 | NUR ---
TALKED TO FAMILY ABOUT TRACH AND PEG THEY DID NOT WANT. TALKED ABOUT WHAT THEY WANTED TO DO IF NOT THAT. THEY WANT TO HAVE HIM GO PALLATIVE. CALLED THE DOCTOR TO TALK TO THE FAMILY. LATER THAT DAY PALLATIVE CAME IN AND TALKED TO FAMILY THEY ARE GOING PALLATIVE ON SAT @ 1000. PATIENT WAS FOUND WITH THE HOLSTER OF HIS FACE AND THERE WAS A RED SPOT FOR SKIN BREAK DOWN THERE. RT WAS CALLED AND THEY REPLACE SOFT WRIST RESTRAINS WERE PLACED AT THAT TIME TO MAKE SURE. PATIENT IS RESTING IN BED.
[2021-06-28] VITALS (45 sets, daily range): BP systolic 96–119; BP diastolic 48–74
[2021-06-28 06:11] LABS: CALCIUM 7.8 mg/dL (8.5-10.1); CREATININE 0.7 mg/dL (0.7-1.3); POTASSIUM 4.5 mmol/L (3.5-5.1)
--- NOTE | 2021-06-28 12:00 | NUR ---
Discussed during unit rounds and during los with the attending physician. Son, the family wanting to palliative extubate on friday06/30/21 10 am per report. He might possible need to dc to [facility] with [facility] here at [facility]. Referral to be faxed to [facility].
--- NOTE | 2021-06-28 13:44 | NUR ---
DNR with palliative extubation pending
--- NOTE | 2021-06-28 15:13 | NUR ---
MICHLE faxed referral to [facility] for evaluation for [facility] hospice. Plan is for withdrawal of care on Jun 30 at 1000. Attending physician has discussed with pt's family. MICHEL faxed requested info to [facility] for review. Notified hospice care consultant, Shirley. Following to assist as needed.
[2021-06-29] VITALS (47 sets, daily range): BP systolic 89–119; BP diastolic 37–75
--- NOTE | 2021-06-29 13:06 | NUR ---
WOUND CARE F/U: THE RN TODAY INFORMED ME THAT THE FAMILY HAS DECIDED FOR COFORT CARE ONLY. I AM HERE TO ASSESS THE TRICEPT SKIN TEAR WHICH IS 40% HEALED TODAY. PINK TO RED WOUND BED WITH NO ODOR OR OTHER S/S OF INFECTION. THE PATIENT REMAINS STRONG AND IS PULLING AWAY DURING THE DRESSING CHANGE. RECOMMENDATIONS; -CONTINUE TO CHANGE THE DRESSING ORDERED.
--- NOTE | 2021-06-29 15:28 | NUR ---
Chart review. remains on vent, nutritional support. Family plan on palliative extubate /withdrawal care on Friday06/30/21 around 10AM. [facility] G[facility] nurse should be out around 10 am, should puma pass away before hospice arrives call [phone]. If hospice does not show up , call [phone] to ask for a eta on admission nurse and so family can stay to fill out paper work for [facility] hospice. To move to [facility] hospice care with [facility] have to dc and then readmit under [facility].
--- NOTE | 2021-06-29 17:04 | NUR ---
1700: RN CALLED DR. WILKINSON AT THIS TIME REGARDING PT'S SPO2. PT PREVIOUSLY SATTING LOW 90S ON 30% FIO2. RN AND RT ATTEMPTED TO CHANGE OUT PT'S SPO2 MONITOR PROBE SEVERAL TIMES IN SEVERAL PLACES WITH POOR PERFUSION WAVEFORM. PT NOW REQIRING 100% FIO2 AND AT 94%. PLAN FOR PALLIATIVE EXTUBATION TOMORROW AM ONCE SON ABLE TO BE BEDSIDE. NO NEW ORDERS AT THIS TIME. CONTINUE TO MONITOR. OKAY TO REMAIN ON 100% FIO2 PER DR. WILKINSON.
--- NOTE | 2021-06-29 17:27 | NUR ---
1430: NUCLEAR WEAPONS MECHANICAL SPECIALIST AT BEDSIDE, DISCUSSED WITH HER THE POC, PER NUCLEAR WEAPONS MECHANICAL SPECIALIST, PLAN FOR SON TO BE AT BEDSIDE TOMORROW AT 1000 AM FOR PALLIATIVE EXTUBATION AND TRANSITION TO COMFORT MEASURES ONLY.
--- NOTE | 2021-06-29 17:28 | NUR ---
1130: DISCUSSED POC WITH DR. WILKINSON DURING INTERDISCIPLINARY ROUNDS. OKAY TO CONTINUE TO HOLD TF AT THIS TIME DUE TO CONCERNS FOR ILEUS. RN TO PLACE ORDER FOR D51/2NS INFUSION AT 125MLS/HR PER DR. WILKINSON FOR HYDRATION.
--- NOTE | 2021-06-29 18:28 | NUR ---
PT CURRENTLY PROGRESSING TOWARDS GOAL OF COMFORT EVIDENCED BY NEW ORDER SET FOR COMFORT CARE TO START TOMORROW ONCE SON ARRIVES TO BEDSIDE. PLAN FOR PALLIATIVE EXTUBATION. PT APPEARS COMFORTABLE THROUGHOUT SHIFT, REPOSITIONED TOLERATED.
[2021-06-30] VITALS (19 sets, daily range): BP systolic 57–126; BP diastolic 18–62
--- NOTE | 2021-06-30 06:07 | NUR ---
ASSUMED CARE OF PT AT 1900. PT DROWSY ON VENT, NO SEDATION ON BOARD. THROUGHOUT NIGHT PT'S BP HAS GRADUALLY TRENDED DOWN AND THIS AM PT IS 73/26 (49) DR WILKINSON CALLED WITHOUT RESPONSE. Jennifer DIAS NP CALLED AND UPDATED ON THIS. SOAP GRINDER REQUESTED FAMILY TO BE NOTIFIED. THIS RN ATTEMTED TO CALL SON X2 AND X1 AND WAS UNABLE TO REACH EITHER. WILL CONTINUE TO MONITOR PT.
--- NOTE | 2021-06-30 07:01 | NUR ---
Patient blood pressure hypotensive. Nurse called patients and son. They were planning on their friend coming up at 10am to do instant messenger with family during withdrawal. Nurse updated him on patients status and blood pressure. Patients son expressed he has covid and can not come up. He expressed nurse could send link for [employer] to see if it works for their systems. Nurse plan on doing this.
--- NOTE | 2021-06-30 07:51 | NUR ---
MARNE INFORMATION IS [phone]- [facility].
--- NOTE | 2021-06-30 08:15 | NUR ---
0815- Patient time of is 0815. Nurse was able to facetime with patients sons, per their request, during time of extubation until time of . They had not further concerns expressed or needs. Patient passing was peaceful in no distress or air hunger noted. Patient, at shift change, was hypotensive with oxygen saturations decreasing. Nurse called patients spouse, who expressed she has a hard time hearing on the phone and handed the phone to her son. Further communication went throught the son, his other spokes person. They had planned to have a friend come up at 10am, however expressed to go ahead and extubate patient to comfort care. This was informed to Dr. Becker, order received to extubate. Patient extubated at 0755.
[2021-06-30] MEDS ORDERED: [UNRECOGNIZED DRUG - OTHER] IV PUSH (08:25)
[2021-06-30] MEDS ORDERED: HYOSCYAMINE0.125 M1 SUBLING (08:26)
[2021-06-30] MEDS ORDERED: LORAZEPAM 22 MG/1 ML IV PUSH ×2 (08:26)
[2021-06-30] MEDS ORDERED: MORPHINE SU4 MG/1 M1 IV PUSH (08:26)
[2021-06-30] MEDS ORDERED: METOCLOPRAM5 MG/1 ML IV PUSH (08:27)
== END 2021-06-30 08:15 | DRG 870 ==
LOC: ER 21:33 → ICU 23:08 → EROBS 23:08 → ICU 06-19 18:32
PROVIDERS: Emergency Medicine; Internal Medicine; Internal Medicine Pulmonary Disease; Nurse Practitioner Family; Pediatrics; Psychiatry & Neurology Neurology; ADMIT Hospitalist; ATTEND Hospitalist
PROC: 5A1955Z Respiratory Ventilation, Greater than 96 Consecutive Hours (ICD-10-PCS; principal; 2021-06-18)
PROC: 0BH17EZ Insertion of Endotracheal Airway into Trachea, Via Natural or Artificial Opening (ICD-10-PCS; principal; 2021-06-18)
DX: A41.9 Sepsis, unspecified organism (principal); N17.0 Acute kidney failure with tubular necrosis; R65.21 Severe sepsis with septic shock; J96.21 Acute and chronic respiratory failure with hypoxia; E43 Unspecified severe protein-calorie malnutrition; G92.8 Other toxic encephalopathy; J69.0 Pneumonitis due to inhalation of food and vomit; N39.0 Urinary tract infection, site not specified; E87.0 Hyperosmolality and hypernatremia; J44.1 Chronic obstructive pulmonary disease with (acute) exacerbation; J44.0 Chronic obstructive pulmonary disease with (acute) lower respiratory infection; F20.0 Paranoid schizophrenia; E87.5 Hyperkalemia; Z20.822 Contact with and (suspected) exposure to COVID-19; N40.1 Benign prostatic hyperplasia with lower urinary tract symptoms; R73.9 Hyperglycemia, unspecified; R74.01 Elevation of levels of liver transaminase levels; I95.9 Hypotension, unspecified; E87.8 Other disorders of electrolyte and fluid balance, not elsewhere classified; N18.9 Chronic kidney disease, unspecified; D64.9 Anemia, unspecified; Z66 Do not resuscitate; D69.6 Thrombocytopenia, unspecified; T50.995A Adverse effect of other drugs, medicaments and biological substances, initial encounter; Z68.20 Body mass index [BMI] 20.0-20.9, adult; Y92.89 Other specified places as the place of occurrence of the external cause
CPT/HCPCS: 10078